=== PATIENT | male | born 1995 | race Caucasian/White ===

== ENCOUNTER 2022-02-16 15:31 | Emergency (ER) | payer MEDICAID ==
[~2022-02-16] VITALS: Ht 170.2 cm; Wt 63.5 kg
[2022-02-16 15:31] VITALS: BP_SYST 139
[2022-02-16 16:01] VITALS: BP_SYST 139
== END 2022-02-16 16:01 ==
LOC: SED 15:31
DX: Z02.89 Encounter for other administrative examinations (principal); Z79.899 Other long term (current) drug therapy
CPT/HCPCS: 99283